=== PATIENT | female | born 1975 ===

== ENCOUNTER 2023-03-16 05:20 | Day surgery (SDC) | payer OTHER ==
[2023-03-14 17:29] VITALS: BMI 37.1
[2023-03-16] MEDS ORDERED: MIDAZOLAM HCL 2 MG/2 ML SINGLE DOSE VIAL ONE (14:28)
[2023-03-16] MEDS ORDERED: ceFAZolin 2 GRAM PREMIX BAG IVPB ONE (14:43)
[2023-03-16] MEDS ORDERED: PROPOFOL 20 ML ONE (14:55)
[2023-03-16] MEDS ORDERED: DEXTROSE 5%-0.45% SALINE 1,000 ML IV SCH (15:30)
[2023-03-16 17:12] VITALS: RESP 20; TEMP 97.8
[2023-03-16 17:15] VITALS: BP 110/69; PULSE 64
== END 2023-03-16 17:50 | disposition home or self-care (01) ==
LOC: JASU-SURG 05:20
PROVIDERS: ATTEND Urology
PROC: 0TVC8ZZ Restriction of Bladder Neck, Via Natural or Artificial Opening Endoscopic (ICD-10-PCS; principal; 2023-03-16 15:30)
DX: N36.42 Intrinsic sphincter deficiency (ISD) (principal)
CPT/HCPCS: 51715; L8606; 81025; 94760; C1713